=== PATIENT | male | born 1985 | race Caucasian/White ===

== ENCOUNTER 2023-04-06 00:57 | Inpatient (IN) | payer OTHER ==
[2023-04-06 01:35] VITALS: BMI 46.5
[2023-04-06] MEDS ORDERED: NALOXONE HCL 0.4 MG/ML VIAL IM PRN (02:37)
[2023-04-06] MEDS ORDERED: guaiFENesin 600 MG TABLET.ER (FP) PO PRN (02:37)
[2023-04-06] MEDS ORDERED: BENZOCAINE/MENTHOL (CHLORASEPTIC ) LOZENGE MM PRN (02:37)
[2023-04-06] MEDS ORDERED: BENZONATATE 200 MG CAPSULE PO PRN (02:37)
[2023-04-06] MEDS ORDERED: NALOXONE HCL (KLOXXADO) 8 MG SPRAY NS PRN (02:37)
[2023-04-06] MEDS ORDERED: ONDANSETRON *ODT* 4 MG TABLET SL PRN (02:37)
[2023-04-06] MEDS ORDERED: POLYETHYLENE GLYCOL (HEALTHYLAX) 3350 17 GM PACKET PO PRN (02:37)
[2023-04-06] MEDS ORDERED: DICYCLOMINE HCL 10 MG CAPSULE PO PRN (02:37)
[2023-04-06] MEDS ORDERED: NICOTINE POLACRILEX 2 MG GUM BUC PRN (02:37)
[2023-04-06] MEDS ORDERED: LOPERAMIDE HCL 2 MG CAPSULE PO PRN (02:37)
[2023-04-06] MEDS ORDERED: BISMUTH SUBSALICYLATE 524 MG/30 ML PO PRN (02:37)
[2023-04-06] MEDS ORDERED: MAGNESIUM HYDROX 2400MG/30ML ORAL SUSPENSION 30 ML CUP PO PRN (02:37)
[2023-04-06] MEDS ORDERED: ACETAMINOPHEN 325 MG TABLET (FP) PO PRN (02:37)
[2023-04-06] MEDS ORDERED: IBUPROFEN 400 MG TABLET (FP) PO PRN (02:37)
[2023-04-06] MEDS ORDERED: MAG HYDROX/AL HYDROX/SIMETH 30 ML UNIT-DOSE CUP PO PRN (02:37)
[2023-04-06] MEDS ORDERED: IBUPROFEN 600 MG TABLET (FP) PO PRN (02:37)
[2023-04-06] MEDS ORDERED: LORazepam 1 MG TABLET PO PRN (02:41)
[2023-04-06] MEDS ORDERED: LORazepam 1 MG TABLET ONE (03:07)
[2023-04-06] MEDS: LORazepam 2 MG TABLET PO SCH ×4 (05:55→22:28)
[2023-04-06] MEDS: PRENATAL VITAMINS W/ FOLIC ACID TABLET (FP) PO SCH (10:12)
[2023-04-06] MEDS: NICOTINE 21 MG/24 HOURS TOPICAL PATCH TD SCH ×2 (10:13→11:20)
[2023-04-06] MEDS: THIAMINE HCL 100 MG TABLET (FP) PO SCH (22:28)
[2023-04-06] MEDS: MELATONIN 5 MG TABLETS PO SCH (22:28)
[2023-04-06] MEDS: METHOCARBAMOL 500 MG TABLET PO PRN (22:28)
[2023-04-07] MEDS: LORazepam 1 MG TABLET PO SCH ×4 (05:47→22:44)
[2023-04-07] MEDS: PRENATAL VITAMINS W/ FOLIC ACID TABLET (FP) PO SCH (10:36)
[2023-04-07] MEDS: NICOTINE 21 MG/24 HOURS TOPICAL PATCH TD SCH (10:37)
[2023-04-07 11:56] LABS: HEMATOCRIT 43.9 % (35.4-49); HEMOGLOBIN 15.3 GM/dL (11.7-16.9); MCH 31.3 pg (25.7-33.7); MCHC 34.9 g/dl (32.0-35.9); MEAN CELL VOLUME 89.7 fl (80-96); MEAN PLT VOLUME 8.3 fl (7.5-11.1); PLATELET COUNT 136 10^3/uL (134-434); RBC 4.89 M/mm3 (4.00-5.60); RDW 16.2 % (11.9-15.9); WHITE BLOOD COUNT 6.4 K/mm3 (4.0-10.0)
[2023-04-07 12:30] LABS: POTASSIUM 3.4 mmol/L (3.5-5.1)
[2023-04-07 12:42] LABS: BILIRUBIN,TOTAL 3.8 mg/dL (0.2-1); BLOOD UREA NITROGEN 7.8 mg/dL (7-18); CALCIUM 9.9 mg/dL (8.5-10.1)
[2023-04-07 12:43] LABS: TOT PROT 7.8 g/dl (6.4-8.2)
[2023-04-07 12:46] LABS: CREATININE 0.7 mg/dL (0.55-1.3)
[2023-04-07] MEDS: LISINOPRIL 5 MG TABLET PO SCH (18:24)
[2023-04-07] MEDS: MELATONIN 5 MG TABLETS PO SCH (22:44)
[2023-04-07] MEDS: METHOCARBAMOL 500 MG TABLET PO PRN (22:44)
[2023-04-07] MEDS: THIAMINE HCL 100 MG TABLET (FP) PO SCH (22:44)
[2023-04-08] MEDS ORDERED: LORazepam 0.5 MG TABLET PO PRN
[2023-04-08] MEDS: LORazepam 0.5 MG TABLET PO SCH ×4 (05:19→22:22)
[2023-04-08] MEDS: PRENATAL VITAMINS W/ FOLIC ACID TABLET (FP) PO SCH (10:27)
[2023-04-08] MEDS: LISINOPRIL 5 MG TABLET PO SCH (10:27)
[2023-04-08] MEDS: NICOTINE 21 MG/24 HOURS TOPICAL PATCH TD SCH (10:28)
[2023-04-08] MEDS: PETROLATUM,WHITE OINTMENT 3.5 OZ JAR TP SCH ×2 (15:30→22:20)
[2023-04-08] MEDS ORDERED: QUEtiapine FUMARATE 50 MG TABLET PO SCH (22:00)
[2023-04-08] MEDS: MELATONIN 5 MG TABLETS PO SCH (22:21)
[2023-04-08] MEDS: THIAMINE HCL 100 MG TABLET (FP) PO SCH (22:21)
[2023-04-08] MEDS: METHOCARBAMOL 500 MG TABLET PO PRN (22:22)
[2023-04-09] MEDS ORDERED: LORazepam 0.5 MG TABLET PO ONE (05:00)
[2023-04-09 09:22] VITALS: BP 130/77; PULSE 90; RESP 17; TEMP 97.6
[2023-04-09] MEDS: PETROLATUM,WHITE OINTMENT 3.5 OZ JAR TP SCH (10:48)
[2023-04-09] MEDS: PRENATAL VITAMINS W/ FOLIC ACID TABLET (FP) PO SCH (10:48)
[2023-04-09] MEDS: NICOTINE 21 MG/24 HOURS TOPICAL PATCH TD SCH (10:48)
[2023-04-09] MEDS: LISINOPRIL 5 MG TABLET PO SCH (10:49)
== END 2023-04-09 10:13 | disposition other institution (70) | DRG 775 ==
LOC: YASAS 00:57 → Y3N 03:24
PROVIDERS: ADMIT Allergy & Immunology; ATTEND Allergy & Immunology
PROC: HZ2ZZZZ Detoxification Services for Substance Abuse Treatment (ICD-10-PCS; principal; 2023-04-06)
DX: F10.230 Alcohol dependence with withdrawal, uncomplicated (principal); F12.20 Cannabis dependence, uncomplicated; F17.210 Nicotine dependence, cigarettes, uncomplicated; F41.9 Anxiety disorder, unspecified; G47.30 Sleep apnea, unspecified; I10 Essential (primary) hypertension; K21.9 Gastro-esophageal reflux disease without esophagitis; E66.01 Morbid (severe) obesity due to excess calories; Z68.42 Body mass index [BMI] 45.0-49.9, adult; Z28.310 Unvaccinated for COVID-19; Z28.9 Immunization not carried out for unspecified reason
CPT/HCPCS: 36415; 80053; 85027; 86780; 87635; 87811; 93005; 93010